=== PATIENT | male | born 1985 | race Caucasian/White ===

== ENCOUNTER 2022-03-20 09:12 | Emergency (ER) | payer OTHER, SELFPAY ==
[2022-03-20 09:40] VITALS: BP 139/79; PULSE 68; RESP 17; TEMP 36.6; O2SAT 98; BMI 26.2
[2022-03-20 10:04] LABS: Appearance Urine UA CLEAR; Bilirubin Urine UA NEGATIVE (NEGATIVE); Color Urine UA YELLOW; Glucose Urine UA NEGATIVE (Negative); Ketones Urine UA NEGATIVE (NEGATIVE); Leukocyte Esterase Urine UA NEGATIVE (NEGATIVE); Nitrite Urine UA NEGATIVE (Negative); Occult Blood Urine UA NEGATIVE (Negative); Protein Urine UA NEGATIVE (Negative); Urobilinogen Urine UA 0.2 E.U./dL (0.2); pH Urine UA 6.5 (4.5-8.0)
[2022-03-20 10:12] LABS: Bacteria Urine None Seen; Culture Indicated Urine Cult Not Indicated; RBC Urine None Seen (0-5/HPF); Urine Comments Microscopic Normal; WBC Urine None Seen (0-5/HPF)
--- NOTE | 2022-03-20 11:02 | ED.MALEGU ---
HPI - Male Genitourinary General Chief complaint: Urogenital-Male Stated complaint: left testicle pain Time Seen by Provider: 03/20/22 10:34 Source: patient Mode of arrival: Ambulatory Limitations: no limitations History of Present Illness HPI Narrative: This is a 36-year-old male with left testicular pain which patient has had intermittently over the years. In approximately 2010 he had testicular torsion and had bilateral orchiopexy to prevent recurrence. He states or time he has had pain particularly on that left side that will be intermittent. He has never seen Urology since then. He has been treated sometimes with antibiotics but does not seem to make any difference. He states pain is in the left testicle only, radiates upwards to the groin. He denies any significant back or flank pain. No fevers or chills. No nausea or vomiting. No dysuria, urgency or discharge. Patient has not had any issues with bowel movements, no diarrhea or constipation. Patient states there was 1 localized area it seemed little bit more painful but it sort of changes location. He states that he will have underlying ache with a significant being or lightening bolt of pain intermittently. Elevation does not seem to make any difference. He states this does not feel similar to his testicular torsion. He is on Paxil daily. Denies any other major medical issues. He is accompanied by his and small child today. Related Data Home Medications Medication Instructions Recorded Confirmed bupropion HCl 300 mg 24 hr tablet, 300 mg PO DAILY 03/20/22 03/20/22 extended release paroxetine HCl 20 mg tablet (Paxil) 20 mg PO BEDTIME 03/20/22 03/20/22 Previous Rx's Medication Instructions Recorded hydrocodone 5 mg-acetaminophen 325 2 tab PO Q6H PRN #14 tab 03/20/22 mg tablet Allergies Allergy/AdvReac Type Severity Reaction Status Date / Time No Known Drug Allergies Allergy Verified 03/20/22 09:44 Review of Systems Review of Systems ROS Unobtainable: All systems reviewed & are unremarkable except as noted in HPI and below Patient History Social History Smoking Status: Never smoker Smoking Status: Never smoker alcohol intake frequency: 0-2 drinks per day Alcohol type: beer Substance Use Type: does not use Exam Narrative Exam Narrative: GENERAL: Alert and oriented x three, male in mild distress. HEENT: Head normocephalic, atraumatic, EOMI, pupils reactive, face symmetric, moist mucous membranes NECK: Supple, full range of motion CARDIOVASCULAR: Regular rate and rhythm without murmurs, rubs or gallops. RESPIRATORY: Breath sounds equal bilaterally, no wheezes rales or rhonchi. ABDOMEN: Soft, nontender. Normoactive bowel sounds all 4 quadrants. No guarding or rebound, rigidity, no mass : No CVA tenderness. Male: normal external examination, no penile discharge or lesions, testicles non-tender to palpation but patient becomes quite painful after, normal cremasteric reflex intact, no inguinal hernias noted. EXTREMITIES: Normal range of motion, no clubbing or edema. Neurovascularly intact NEUROLOGICAL: Cranial nerves II through XII grossly intact. Moving all extremities SKIN: Warm, dry, no petechiae, no rashes or lesions. Initial Vital Signs Initial Vital Signs: Vital Signs Temperature 98 F 03/20/22 09:40 Pulse Rate 68 03/20/22 09:40 Respiratory Rate 17 03/20/22 09:40 Blood Pressure 139/79 03/20/22 09:40 Pulse Oximetry 98 03/20/22 09:40 Course Orders Ordered: Discontinued Medications Hydrocodone Bitart/Acetaminophen (Hydrocodone/Acet 5/325 Tablet) 2 tab PO NOW ONE Stop: 03/20/22 13:04 Last Admin: 03/20/22 13:11 Dose: 2 tab Documented by: JAIR Ketorolac Tromethamine (Ketorolac 30 Mg/Ml Vial) 30 mg IM NOW ONE Stop: 03/20/22 11:15 Last Admin: 03/20/22 11:33 Dose: 30 mg Documented by: PAM Reevaluation(s) Reevaluation #1: Patient was quite painful after evaluation. Was given Toradol which was somewhat helpful but after ultrasound patient still very uncomfortable. Was given additional dose of oral medication. He is not driving today. Vital Signs Vital signs: Vital Signs - 8 hr 03/20/22 09:40 Temperature 98 F Pulse Rate 68 Respiratory Rate 17 Blood Pressure 139/79 Pulse Oximetry 98 MDM - Male Genitourinary Lab Data Labs: Lab Results 03/20/22 03/20/22 Range/Units 09:12 09:55 Urine Color Yellow Urine Appearance Clear Urine pH 6.5 (4.5-8.0) Ur Specific [place] 1.020 (1.000-1.035) Urine Protein Negative (Negative) Urine Glucose (UA) Negative (Negative) g/dL Urine Ketones Negative (NEGATIVE) Urine Occult Blood Negative (Negative) Urine Nitrate Negative (Negative) Urine Bilirubin Negative (NEGATIVE) Urine Urobilinogen 0.2 (0.2) E.U./dL Ur Leukocyte Esterase Negative (NEGATIVE) Urine RBC None seen (0-5/HPF) Urine WBC None seen (0-5/HPF) Urine Bacteria None seen (None) Ur Culture Indicated? Cult not indicated Micro UA Comment Microscopic normal Ur Chlamydia DNA (PCR) Not detected N gonorrhoeae DNA (PCR) Not detected Imaging Data scrotal US: Radiologist's Impression: [address] [address] Ultrasound Report Signed Patient: El Wood MR#: [id number] : 1985 Acct:[id number] Age/Sex: 36 / M Date of Service: 03/20/22 Loc: ED Accession Number: [id number] ?? Procedure: US scrotum Ordering Provider: Maria Alejandra Blair D.O. PROCEDURE:? US SCROTUM ? INDICATIONS:? left testicular pain ? TECHNIQUE:? Real-time scanning was performed of the scrotum and testicles, with image documentation.? Color and pulse Doppler interrogation was performed of both testicles.? ? COMPARISON:? None. ? FINDINGS:? ? Right:? Testicle is normal in size at 4.5 x 2.3 x 3.1 cm, and homogenous in echotexture.? Epididymis is normal in overall size and morphology.? No hydrocele or varicoceles.? Overlying scrotal skin is normal in thickness.? ? Left:? Testicle is normal in size at 5 x 2.3 x 2.7 cm, and homogeneous in echotexture.? Epididymis is normal in overall size and demonstrates a 3 mm epididymal cyst.? No hydrocele or varicoceles.? Overlying scrotal skin is normal in thickness.? ? Doppler:? Color and pulse Doppler demonstrate normal and symmetric arterial flow in both testicles.? Prominent vessels can be seen involving the right scrotum. ? IMPRESSION:? No acute abnormality can be seen. ? The testicles demonstrate a normal, symmetric appearance, without masses or abnormal vascularity. ? Relatively prominent vascularity can be seen involving the right scrotum. ? ? Note: Concordant preliminary findings given by the secondary english teacher upon the completion of the examination to Dr. Blair at 11:50 a.m. on March 20, 2022.? ? ? Dictated by: Ramesh Collier M.D. on 03/20/2022 at 11:07 ? ? Approved by: Ramesh Collier M.D. on 03/20/2022 at 11:08 [facility] Narrative Medical decision making narrative: This is a 36-year-old male with acute on chronic left-sided scrotal/testicular pain patient's UA is negative, urine GC is negative. Testicular ultrasound shows some relatively prominent vascularity in the right scrotum which is asymptomatic, but no signs of torsion, epididymitis or other changes appreciated bilaterally. Patient did have urine culture sent. Discussed with patient he has been put on antibiotics before and was not helpful. He has not seen Urology. Plan for pain management and referral to Urology given. Return precautions were discussed. Patient feels comfortable with this plan. Discharge Plan Departure Patient Disposition: Home Clinical Impression: Pain in left testicle Activity Restrictions/Additional Instructions: Follow-up with urology. Call for an appointment today or tomorrow to set up an appointment in the next week. Urine studies are still pending patient result today and in the next 2-3 days if they are positive you should receive a phone call to start antibiotics. You may take pain medication as prescribed 1-2 tablets every 6 hours as needed. This medication can make you sleepy do not drive, perform hazardous activities or make any major decisions while taking it. This medication will make you constipated please take a stool softener once to twice daily until stools are soft and regular. You may also take ibuprofen up to 600 mg every 6 hours as needed. There is a slight increase in ulcers or GI bleeds with ibuprofen and Paxil but you can take with the Pepcid or similar type medication or with food to help decrease this risk. Prescription sent to [facility] in [place] Please return for fevers, increasing pain, changing abdominal, back or flank pain, persistent vomiting, redness, warmth or swelling of the testicle, changed location of pain or other new or concerning symptoms. Prescriptions: New hydrocodone-acetaminophen 5-325 mg tablet 2 tab PO Q6H PRN (Reason: pain) Qty: 14 0RF No Action paroxetine HCl [Paxil] 20 mg Tablet 20 mg PO BEDTIME 0RF bupropion HCl 300 mg tablet extended release 24 hr 300 mg PO DAILY 0RF Label Comments: TAKE 1 TABLET BY MOUTH EVERY 24 HOURS Referrals: Miscellaneous,Doctor, [Primary Care Provider] - Linus Green MD [Physician] -
--- NOTE | 2022-03-20 11:14 | DI.US.S_ITS ---
PROCEDURE: US SCROTUM INDICATIONS: left testicular pain TECHNIQUE: Real-time scanning was performed of the scrotum and testicles, with image documentation. Color and pulse Doppler interrogation was performed of both testicles. COMPARISON: None. FINDINGS: Right: Testicle is normal in size at 4.5 x 2.3 x 3.1 cm, and homogenous in echotexture. Epididymis is normal in overall size and morphology. No hydrocele or varicoceles. Overlying scrotal skin is normal in thickness. Left: Testicle is normal in size at 5 x 2.3 x 2.7 cm, and homogeneous in echotexture. Epididymis is normal in overall size and demonstrates a 3 mm epididymal cyst. No hydrocele or varicoceles. Overlying scrotal skin is normal in thickness. Doppler: Color and pulse Doppler demonstrate normal and symmetric arterial flow in both testicles. Prominent vessels can be seen involving the right scrotum. IMPRESSION: No acute abnormality can be seen. The testicles demonstrate a normal, symmetric appearance, without masses or abnormal vascularity. Relatively prominent vascularity can be seen involving the right scrotum. Note: Concordant preliminary findings given by the weld engineer upon the completion of the examination to Dr. Blair at 11:50 a.m. on March 20, 2022. Dictated by: Ramesh Collier M.D. on 03/20/2022 at 11:07 Approved by: Ramesh Collier M.D. on 03/20/2022 at 11:08
[2022-03-20] MEDS: KETOROLAC 30 MG/ML VIAL IM (11:33)
[2022-03-20] MEDS: HYDROCODONE/ACET 5/325 TABLET 2 TAB PO (13:11)
[2022-03-20 13:18] VITALS: BP 138/78; PULSE 61; RESP 18; O2SAT 97
[2022-03-20 14:23] LABS: Urine N gonorrhoeae NOT DETECTED
[2022-03-20 14:26] LABS: Urine Chlamydia NOT DETECTED
== END 2022-03-20 13:19 | disposition home or self-care (01) ==
PROVIDERS: Emergency Provider Emergency Medicine
DX: N50.812 Left testicular pain (principal)
CPT/HCPCS: 76870; 81001; 87086; 87491; 87591; 96372; 99283; J1885

== ENCOUNTER 2022-04-16 19:30 | Emergency (ER) | payer OTHER, SELFPAY ==
[2022-04-16 19:39] VITALS: BP 125/81; PULSE 67; RESP 16; TEMP 36.6; O2SAT 99
--- NOTE | 2022-04-16 19:45 | DI.RAD.S_ITS ---
PROCEDURE: XR CHEST 1V INDICATIONS: chest pain TECHNIQUE: One view of the chest was acquired. COMPARISON: None. FINDINGS: Surgical changes and devices: None. Lungs and pleura: Lungs are clear. No pleural effusions or pneumothorax. Mediastinum: Mediastinal contours appear normal. Heart size is normal. Bones and chest wall: No suspicious bony lesions. Overlying soft tissues appear unremarkable. IMPRESSION: 1. No acute cardiopulmonary disease. Dictated by: Sylvain Gupta M.D. on 04/16/2022 at 20:36 Approved by: Sylvain Gupta M.D. on 04/16/2022 at 20:36
[2022-04-16 20:30] LABS: Add Manual Diff / Slide Review NO; Basophils Absolute Auto 0 /uL (0-100); Basophils Percent Auto 0.7 % (0-2); Eosinophils Absolute Auto 0 /uL (0-450); Eosinophils Percent Auto 0.7 % (2-4); Hematocrit 44.4 % (41-53); Hemoglobin 15.5 g/dL (13.5-17.5); Lymphocytes Absolute Auto 1400 /uL (1100-4500); Lymphocytes Percent Auto 21.6 % (25-40); Mean Corpuscular HGB Conc 34.9 % (30-36); Mean Corpuscular Hemoglobin 31.2 PG (26-34); Mean Corpuscular Volume 89.2 fL (80-100); Monocytes Absolute Auto 400 /uL (0-900); Monocytes Percent Auto 6.6 % (3-14); Neutrophils Absolute Auto 4500 /uL (1500-7000); Neutrophils Percent Auto 70.4 % (50-75); Platelet Count 258 X10^3/uL (150-400); Red Blood Cell Count 4.98 X10^6/uL (4.5-5.9); Red Cell Distribution Width 13.4 % (11.6-14.8); White Blood Cell Count 6.4 X10^3/uL (4.5-11.0)
[2022-04-16 21:01] LABS: Alanine Aminotransferase 26 IU/L (<50); Albumin 4.8 g/dL (3.5-5.0); Albumin Globulin Ratio 1.8 (1.0-2.8); Alkaline Phosphatase 77 U/L (38-126); Aspartate Aminotransferase 29 IU/L (17-59); BUN Creatinine Ratio 16.7 (6-22); Bilirubin Total 0.5 mg/dL (0.2-1.3); Blood Urea Nitrogen 24 mg/dL (9-20); Carbon Dioxide 24 mmol/L (22-32); Chloride 104 mmol/L (98-107); Creatine Kinase 172 U/L (55-170); Estimated Glomerular Filt Rate > 60 mL/min (>60); Globulin 2.7 g/dL (1.7-4.1); Glucose 130 mg/dL (70-100); Lipase 137 U/L (23-300); Magnesium 2.2 mg/dL (1.6-2.3); Potassium 3.7 mmol/L (3.4-5.1); Sodium 139 mmol/L (137-145); Total Protein 7.5 g/dL (6.3-8.2)
[2022-04-16 21:12] LABS: Troponin I < 0.012 ng/mL (0.01-0.034)
[2022-04-16 21:16] LABS: CKMB % Relative Index 0.6 % (1.5-5.0); Creatine Kinase MB 1.08 ng/mL (<2.37); HEMOLYSIS 18 (0-50)
[2022-04-16] MEDS: ONDANSETRON 4 MG ODT SL (22:26)
--- NOTE | 2022-04-16 22:54 | ED_ITS ---
HPI - Chest Pain General Chief Complaint: Chest Pain Stated Complaint: Sternum Pain nausea pain when breathing Time Seen by Provider: 04/16/22 22:32 Source: patient Mode of arrival: Ambulatory History of Present Illness HPI narrative: Patient here with . Has sudden onset of reproducible xiphoid pain at 5:00 p.m. tonight. No known injury. No recent illness. No fever chills cough cold or congestion. Patient is in the . Exercises routinely. No new injuries or maneuvers. No recent exertional chest pain or dyspnea. No history of high blood pressure hypercholesteremia or heart attack or strokes. Related Data Home Medications Medication Instructions Recorded Confirmed bupropion HCl 300 mg 24 hr tablet, 300 mg PO DAILY 03/20/22 03/20/22 extended release paroxetine HCl 20 mg tablet (Paxil) 20 mg PO BEDTIME 03/20/22 03/20/22 Previous Rx's Medication Instructions Recorded hydrocodone 5 mg-acetaminophen 325 2 tab PO Q6H PRN pain #14 tabs 03/20/22 mg tablet ibuprofen 800 mg tablet 800 mg PO Q8H PRN pain #20 tabs 04/17/22 ondansetron 4 mg disintegrating 4 mg PO Q8H PRN nausea and 04/17/22 tablet vomiting #10 tabs Allergies Allergy/AdvReac Type Severity Reaction Status Date / Time No Known Drug Allergies Allergy Verified 03/20/22 09:44 Review of Systems Review of Systems Narrative: GENERAL: Denies chills, fatigue, malaise, fever, sweats. HEENT: Denies sinus pain, ear pain, sore throat RESPIRATORY: Denies dyspnea, cough CARDIOVASCULAR: Positive for chest pain, negative for palpitations GASTROINTESTINAL: Denies nausea, vomiting, abdominal pain : Denies dysuria, frequency, hematuria MUSCULOSKELETAL: denies muscle or bony pain SKIN: Denies rash, skin lesions NEUROLOGIC: Denies weakness, numbness ROS Unobtainable: All systems reviewed & are unremarkable except as noted in HPI and below Patient History Social History Smoking Status: Never smoker Smoking Status: Never smoker alcohol intake frequency: 0-2 drinks per day Alcohol type: beer Substance Use Type: does not use Exam Narrative Exam Narrative: GENERAL: in no distress, not toxic not dyspneic HEAD: Normocephalic. EYES: Pupils equal round No scleral icterus. ENT: Mucous membranes moist. NECK: Trachea midline. CARDIOVASCULAR: Regular rate and rhythm without murmurs, chest exposed. There is reproducible point tenderness at the xiphoid process. Hurts to cough and deep breath as well. However pain and tenderness is focal at the tip of the xiphoid bone. No overlying rash. No crepitus or flail. RESPIRATORY: Clear to auscultation. Breath sounds equal bilaterally. No wheezes, rales, or rhonchi. GASTROINTESTINAL: Abdomen soft, non-tender EXTREMITIES: No gross deformities. BACK: No flank tenderness. NEURO: AOx4. SKIN: Warm and dry PSYCH: Not anxious, is cooperative Initial Vital Signs Initial Vital Signs: Vital Signs Temperature 97.8 F 04/16/22 19:39 Pulse Rate 67 04/16/22 19:39 Respiratory Rate 16 04/16/22 19:39 Blood Pressure 125/81 04/16/22 19:39 Pulse Oximetry 99 04/16/22 19:39 Oxygen Delivery Method 04/16/22 19:39 Course Course Course Narrative: No new issues during course of stay Orders Ordered: Discontinued Medications Ketorolac Tromethamine (Ketorolac 30 Mg/Ml Vial) 15 mg IV NOW ONE Stop: 04/16/22 22:53 Last Admin: 04/16/22 23:14 Dose: 15 mg Documented By: ABDOULAYE Ondansetron HCl (Ondansetron 4 Mg Odt) 4 mg SL NOW ONE Stop: 04/16/22 22:21 Last Admin: 04/16/22 22:26 Dose: 4 mg Documented By: ANNETTE Reevaluation(s) Reevaluation #1: Patient states improvement with Toradol. Less painful on palpation. Not as severe as before. Return precautions reviewed with patient and . Reviewed results with them. They do desire discharge home Time: 01:15 Vital Signs Vital signs: Vital Signs - 8 hr 04/16/22 23:33 04/17/22 00:00 04/17/22 01:19 Pulse Rate 52 L 54 L 56 L Respiratory Rate 18 21 14 Blood Pressure 127/79 Pulse Oximetry 98 98 99 Oxygen Delivery Method Room Air MDM - Chest Pain Differential Diagnosis Differential diagnosis: Likely fracture of rib, pneumothorax, stable angina, unstable angina pectoris, atypical chest pain, st elevation myocardial infarction, costochondritis and chest pain Lab Data Result diagrams: 04/16/22 19:54 04/16/22 19:54 Labs: Lab Results 04/16/22 04/16/22 04/16/22 Range/Units 19:51 19:54 19:54 WBC 6.4 (4.5-11.0) X10^3/uL RBC 4.98 (4.5-5.9) X10^6/uL Hgb 15.5 (13.5-17.5) g/dL Hct 44.4 (41-53) % MCV 89.2 (80-100) fL MCH 31.2 (26-34) PG MCHC 34.9 (30-36) % RDW 13.4 (11.6-14.8) % Plt Count 258 (150-400) X10^3/uL Neut % (Auto) 70.4 (50-75) % Lymph % (Auto) 21.6 L (25-40) % [place] % (Auto) 6.6 (3-14) % Eos % (Auto) 0.7 L (2-4) % Baso % (Auto) 0.7 (0-2) % Neut # (Auto) 4500 (6995-8462) /uL Lymph # (Auto) 1400 (5097-3224) /uL [place] # (Auto) 400 (0-900) /uL Eos # (Auto) 0 (0-450) /uL Baso # (Auto) 0 (0-100) /uL D-Dimer < 200 (<230) ng/mL Sodium 139 (137-145) mmol/L Potassium 3.7 (3.4-5.1) mmol/L Chloride 104 (98-107) mmol/L Carbon Dioxide 24 (22-32) mmol/L BUN 24 H (9-20) mg/dL Creatinine 1.44 H (0.66-1.25) mg/dL Estimated GFR > 60 (>60) mL/min BUN/Creatinine Ratio 16.7 (6-22) Glucose 130 H (70-100) mg/dL Calcium 9.0 (8.4-10.2) mg/dL Magnesium 2.2 (1.6-2.3) mg/dL Total Bilirubin 0.5 (0.2-1.3) mg/dL AST 29 (17-59) IU/L ALT 26 (<50) IU/L Alkaline Phosphatase 77 (38-126) U/L Total Creatine Kinase 172 H (55-170) U/L CK-MB (CK-2) 1.08 (<2.37) ng/mL CK-MB (CK-2) Rel Index 0.6 L (1.5-5.0) % Troponin I < 0.012 (0.01-0.034) ng/mL Total Protein 7.5 (6.3-8.2) g/dL Albumin 4.8 (3.5-5.0) g/dL Globulin 2.7 (1.7-4.1) g/dL Albumin/Globulin Ratio 1.8 (1.0-2.8) Lipase 137 (23-300) U/L Imaging Data Chest x-ray: Radiologist's Impression: [address] [address] XRay Report Signed Patient: El Wood MR#: [id number] : 1985 Acct:[id number] Age/Sex: 36 / M Date of Service: 04/16/22 Loc: ED Accession Number: [id number] ?? Procedure: XR chest 1V Ordering Provider: Linus Maciel MD PROCEDURE:? XR CHEST 1V ? INDICATIONS:? chest pain ? TECHNIQUE:? One view of the chest was acquired.? ? COMPARISON:? None. ? FINDINGS:? ? Surgical changes and devices:? None.? ? Lungs and pleura:? Lungs are clear.? No pleural effusions or pneumothorax.? ? Mediastinum:? Mediastinal contours appear normal.? Heart size is normal.? ? Bones and chest wall:? No suspicious bony lesions.? Overlying soft tissues appear unremarkable.? ? IMPRESSION:? ? 1.? No acute cardiopulmonary disease. ? ? ? Dictated by: Sylvain Gupta M.D. on 04/16/2022 at 20:36 ? ? Approved by: Sylvain Gupta M.D. on 04/16/2022 at 20:36 ? ECG Data Interpretation: Normal sinus rhythm rate [address] elevation or depression. MDM Narrative Medical decision making narrative: Appropriate for discharge home. Patient had focal reproducible tenderness to the tip of the xiphoid. Exam and laboratory studies are reassuring. Likely xiphoid itis. Prescriptions provided for patient. Return precautions reviewed with patient and . They desire discharge home. Discharge Plan Departure Patient Disposition: Home Clinical Impression: Xiphoiditis Instructions: DI for Atypical Chest Pain, DI for Costochondritis Activity Restrictions/Additional Instructions: See family doctor in a week for recheck. Prescription for Motrin and Zofran have been provided for you. Return if worsening questions or concerns. Prescriptions: New ibuprofen 800 mg tablet 800 mg PO Q8H PRN (Reason: pain) Qty: 20 0RF ondansetron 4 mg tablet,disintegrating 4 mg PO Q8H PRN (Reason: nausea and vomiting) Qty: 10 0RF No Action paroxetine HCl [Paxil] 20 mg Tablet 20 mg PO BEDTIME bupropion HCl 300 mg tablet extended release 24 hr 300 mg PO DAILY Label Comments: TAKE 1 TABLET BY MOUTH EVERY 24 HOURS hydrocodone-acetaminophen 5-325 mg tablet 2 tab PO Q6H PRN (Reason: pain) Qty: 14 0RF Stand Alone Forms: Work Release Note Visit Report Forms: Patient Portal/API
[2022-04-16] MEDS: KETOROLAC 30 MG/ML VIAL 15 MG IV (23:14)
[2022-04-16 23:33] VITALS: PULSE 52; RESP 18; O2SAT 98
[2022-04-16 23:39] LABS: D Dimer < 200 ng/mL (<230)
--- NOTE | 2022-04-16 23:57 | PC.NURSE ---
Pt reports a 4/10 intermittent pain at his xiphoid process that began around 5pm while sitting and working at his desk. Pt reports pain as both dull and sharp, and had a sharp left chest pain that last only a few seconds. Pt reports pain with a deep breath and diarrhea. 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
[2022-04-17] VITALS: PULSE 54; RESP 21; O2SAT 98
[2022-04-17 01:19] VITALS: BP 127/79; PULSE 56; RESP 14; O2SAT 99
== END 2022-04-17 01:19 | disposition home or self-care (01) ==
PROVIDERS: Emergency Provider Emergency Medicine
DX: R07.89 Other chest pain (principal)
CPT/HCPCS: 71045; 80053; 82550; 82553; 83690; 83735; 84484; 85025; 85379; 93005; 96374; 99284; J1885

== ENCOUNTER → 2022-06-09 17:05 | Outpatient (CLI) | payer OTHER, SELFPAY ==
--- NOTE | 2022-06-09 | DI.MRI.S_ITS ---
PROCEDURE: MR PELIS WO/W CON INDICATIONS: TESTICULAR PAIN TECHNIQUE: Coronal HASTE, sagittal T2 FSE, axial T1 FSE, axial and coronal nonbreath-hold T2 FSE. Axial dynamic VIBE during administration of contrast. Post-contrast axial and coronal VIBE/2-D FLASH with fat saturation from the iliac crests to the symphysis. Optional diffusion weighted imaging and ADC may be performed. COMPARISON: 03/20/2022 ultrasound FINDINGS: Image quality: Excellent. Bowel and peritoneum: No pathologic free pelvic fluid. Inferior colon and small bowel loops are normal in caliber. Genitourinary system: Symmetric testicles with normal overall signal. Susceptibility adjacent to the right testis may be from prior orchiopexy surgery. Prominent veins noted in the pampiniform plexus, although no varicocele was noted on prior dynamic ultrasound. Corpus spongiosum and cavernosum of the penis are within normal limits by MRI. Nonspecific geographic hypointensity of the prostate peripheral zone could be sequelae of prostatitis. Bladder is within normal limits. No urethral dilation. Nodes and vessels: No pathologic pelvic or inguinal adenopathy by size criteria. Iliac vessels are normal in caliber. Soft tissues: No inguinal hernias. Bones: Marrow is normal in overall signal. IMPRESSION: Testes are within normal limits by MRI. No masses or asymmetric enlargement. Some foci of susceptibility adjacent to the right testis may be from prior reported orchiopexy. If symptoms persist or worsen, ultrasound remains first-line to evaluate acute testicular disorders. Dictated by: Jose Mulligan M.D. on 06/10/2022 at 8:57 Approved by: Jose Mulligan M.D. on 06/10/2022 at 9:06
== END ==
PROVIDERS: Referring Provider Nurse Practitioner Family; Visit Provider Nurse Practitioner Family
DX: N50.819 Testicular pain, unspecified (principal)
CPT/HCPCS: 72197; A9579

== ENCOUNTER 2022-06-19 08:25 | Emergency (ER) | payer OTHER, SELFPAY ==
[2022-06-19 08:45] VITALS: BP 131/76; PULSE 70; RESP 14; TEMP 37; O2SAT 99; BMI 29.0
--- NOTE | 2022-06-19 09:07 | ED.PSYCH ---
HPI - Psych General Chief Complaint: Psychiatric Symptoms Stated Complaint: HALLUCINATIONS, VISUAL AND AUDITORY Time Seen by Provider: 06/19/22 08:52 Source: patient Mode of arrival: Ambulatory History of Present Illness HPI Narrative: Patient is a 36-year-old male history of anxiety depression started on Wellbutrin and Paxil a few months ago. He says for the last 2 months he has had extremely vivid memories of things that did not happen. He asks his children about events they say those things did not happen. He remembers have a conversation with someone at work stating that at this person needed coverage for 30 days however that conversation apparently was not real. He is having a very hard time distinguishing between what is real and what is not real. He does not actually hear voices or see things but he has very specific memory of events that have happened. He had to ask his recently if they actually did have intercourse or not, because he just was not sure. He also has exacerbation of irrational fears. He says he has always had that but now he feels like it has gotten significantly worse. He says he walked into his bedroom and for some reason thought with a high school counselor something about was written on the wall. He is in outpatient therapy on the [facility]. He denies any thoughts of suicide or homicide. He denies any drug use or any alcohol use. He has no numbness tingling weakness. He has no balance issues. Related Data Home Medications Medication Instructions Recorded Confirmed bupropion HCl 300 mg 24 hr tablet, 300 mg PO DAILY 03/20/22 03/20/22 extended release paroxetine HCl 20 mg tablet (Paxil) 20 mg PO BEDTIME 03/20/22 03/20/22 Previous Rx's Medication Instructions Recorded hydrocodone 5 mg-acetaminophen 325 2 tab PO Q6H PRN pain #14 tabs 03/20/22 mg tablet ibuprofen 800 mg tablet 800 mg PO Q8H PRN pain #20 tabs 04/17/22 ondansetron 4 mg disintegrating 4 mg PO Q8H PRN nausea and 04/17/22 tablet vomiting #10 tabs Allergies Allergy/AdvReac Type Severity Reaction Status Date / Time No Known Drug Allergies Allergy Verified 06/19/22 08:52 Review of Systems Review of Systems Narrative: GENERAL: Denies chills,fever HEENT: Denies throat pain RESPIRATORY: Denies dyspnea, cough, wheezing CARDIOVASCULAR: Denies chest pain, palpitations GASTROINTESTINAL: Denies nausea, vomiting MUSCULOSKELETAL: Denies extremity pain, injury SKIN: No rash, no laceration, no pruritus NEUROLOGIC: Denies weakness, dizziness, headache, numbness 8 point review of systems is negative except for those stated above and HPI Psychiatric Psychiatric: Reports system reviewed and no additional complaints, except as documented, Reports paranoia, Reports visual hallucinations, Reports tactile hallucinations and Denies homicidal ideation Patient History Social History Smoking Status: Never smoker Smoking Status: Never smoker alcohol intake frequency: 0-2 drinks per day Alcohol type: beer Substance Use Type: does not use Exam Initial Vital Signs Initial Vital Signs: Vital Signs Temperature 98.6 F 06/19/22 08:45 Pulse Rate 70 06/19/22 08:45 Respiratory Rate 14 06/19/22 08:45 Blood Pressure 131/76 06/19/22 08:45 Pulse Oximetry 99 06/19/22 08:45 Oxygen Delivery Method 06/19/22 08:45 GENERAL: Well-appearing 36-year-old male and in no acute distress. HEENT: Head atraumatic,EOMI, pupils reactive, face symmetric, moist mucous membranes CARDIOVASCULAR: Regular rate and rhythm without murmurs, rubs or gallops. RESPIRATORY: Breath sounds equal bilaterally, no wheezes rales or rhonchi. EXTREMITIES: Normal range of motion, no clubbing or edema. Neurovascularly intact NEUROLOGICAL: Alert and oriented x4. SKIN: Warm, dry, no laceration, no petechiae, no rashes or lesions. Psych Appearance: grossly normal Mental Status: mental status grossly normal Speech and Movement: speech clear Mood: anxious mood and paranoid Affect: normal affect Attitude: cooperative Thought Process: normal Thought Content: hallucinations visual and tactile Judgment: fair Course Orders Ordered: ED Orders 06/19/22 08:51 Consult to [facility] - Spray Painting Machine Operator Stat 06/19/22 09:09 Consult to [facility] - Spray Painting Machine Operator Urgent CT head/brain wo con Stat 06/19/22 09:31 Complete Blood Count AUTO DIFF Stat Comprehensive Metabolic Panel Stat Ethanol (ETOH) Stat TSH [Thyroid Stimulating Hormone] Stat 06/19/22 09:59 Urine Drug Screen, Rapid Stat Vital Signs Vital signs: Vital Signs - 8 hr 06/19/22 13:53 Pulse Rate 67 Respiratory Rate 18 Pulse Oximetry 98 Oxygen Delivery Method Room Air MDM - Psych Lab Data Result diagrams: 06/19/22 09:31 06/19/22 09:31 Labs: Lab Results 06/19/22 06/19/22 06/19/22 Range/Units 09:31 09:31 09:31 WBC 4.7 (4.5-11.0) X10^3/uL RBC 5.09 (4.5-5.9) X10^6/uL Hgb 16.0 (13.5-17.5) g/dL Hct 45.3 (41-53) % MCV 88.9 (80-100) fL MCH 31.4 (26-34) PG MCHC 35.3 (30-36) % RDW 13.4 (11.6-14.8) % Plt Count 248 (150-400) X10^3/uL Neut % (Auto) 62.7 (50-75) % Lymph % (Auto) 26.2 (25-40) % [place] % (Auto) 9.2 (3-14) % Eos % (Auto) 1.1 L (2-4) % Baso % (Auto) 0.8 (0-2) % Neut # (Auto) 2900 (9490-8597) /uL Lymph # (Auto) 1200 (6417-6808) /uL [place] # (Auto) 400 (0-900) /uL Eos # (Auto) 100 (0-450) /uL Baso # (Auto) 0 (0-100) /uL Sodium 140 (137-145) mmol/L Potassium 3.9 (3.4-5.1) mmol/L Chloride 103 (98-107) mmol/L Carbon Dioxide 30 (22-32) mmol/L BUN 18 (9-20) mg/dL Creatinine 1.32 H (0.66-1.25) mg/dL Estimated GFR > 60 (>60) mL/min BUN/Creatinine Ratio 13.6 (6-22) Glucose 104 H (70-100) mg/dL Calcium 9.2 (8.4-10.2) mg/dL Total Bilirubin 0.7 (0.2-1.3) mg/dL AST 30 (17-59) IU/L ALT 32 (<50) IU/L Alkaline Phosphatase 64 (38-126) U/L Total Protein 7.7 (6.3-8.2) g/dL Albumin 4.6 (3.5-5.0) g/dL Globulin 3.1 (1.7-4.1) g/dL Albumin/Globulin Ratio 1.5 (1.0-2.8) TSH 2.07 (0.47-4.68) uIU/mL U Opiates 300ng/mL cut (Negative) Ur Oxycodone Screen (Negative) Urine Methadone Screen (Negative) Ur Barbiturates Screen (Negative) U Tricyclic Antidepress (Negative) Ur Phencyclidine Scrn (Negative) Ur Amphetamines Screen (Negative) U Methamphetamines Scrn (Negative) Ur MDMA Scrn (Ecstasy) (Negative) U Benzodiazepines Scrn (Negative) Urine Cocaine Screen (Negative) U Marijuana (THC) Screen Ethyl Alcohol < 10 ( - 10) mg/dL 06/19/22 Range/Units 09:59 WBC (4.5-11.0) X10^3/uL RBC (4.5-5.9) X10^6/uL Hgb (13.5-17.5) g/dL Hct (41-53) % MCV (80-100) fL MCH (26-34) PG MCHC (30-36) % RDW (11.6-14.8) % Plt Count (150-400) X10^3/uL Neut % (Auto) (50-75) % Lymph % (Auto) (25-40) % [place] % (Auto) (3-14) % Eos % (Auto) (2-4) % Baso % (Auto) (0-2) % Neut # (Auto) (2377-8089) /uL Lymph # (Auto) (0653-4134) /uL [place] # (Auto) (0-900) /uL Eos # (Auto) (0-450) /uL Baso # (Auto) (0-100) /uL Sodium (137-145) mmol/L Potassium (3.4-5.1) mmol/L Chloride (98-107) mmol/L Carbon Dioxide (22-32) mmol/L BUN (9-20) mg/dL Creatinine (0.66-1.25) mg/dL Estimated GFR (>60) mL/min BUN/Creatinine Ratio (6-22) Glucose (70-100) mg/dL Calcium (8.4-10.2) mg/dL Total Bilirubin (0.2-1.3) mg/dL AST (17-59) IU/L ALT (<50) IU/L Alkaline Phosphatase (38-126) U/L Total Protein (6.3-8.2) g/dL Albumin (3.5-5.0) g/dL Globulin (1.7-4.1) g/dL Albumin/Globulin Ratio (1.0-2.8) TSH (0.47-4.68) uIU/mL U Opiates 300ng/mL cut Negative (Negative) Ur Oxycodone Screen Negative (Negative) Urine Methadone Screen Negative (Negative) Ur Barbiturates Screen Negative (Negative) U Tricyclic Antidepress Negative (Negative) Ur Phencyclidine Scrn Negative (Negative) Ur Amphetamines Screen Negative (Negative) U Methamphetamines Scrn Negative (Negative) Ur MDMA Scrn (Ecstasy) Negative (Negative) U Benzodiazepines Scrn Negative (Negative) Urine Cocaine Screen Negative (Negative) U Marijuana (THC) Screen TNP Ethyl Alcohol ( - 10) mg/dL Urine Dip Bedside Urine Glucose Negative Bedside Urine Bilirubin - Negative Bedside Urine Ketone - Negative Urine Specific [place] 1.025 Bedside Urine Occult Blood - Negative Bedside Urine pH 6 Bedside Urine Protein - Negative Bedside Urine Urobilinogen - Negative Bedside Urine Nitrite - Negative Bedside Urine Leukocytes - Negative Esterase Imaging Data CT scan - head: Radiologist's Impression: [address] [address] [address] Scan Report Signed Patient: El Wood MR#: [id number] : 1985 Acct:[id number] Age/Sex: 36 / M Date of Service: 06/19/22 Loc: ED Accession Number: [id number] ?? Procedure: CT head/brain wo con Ordering Provider: Judit Bach D.O. PROCEDURE:? CT HEAD/BRAIN WO CON ? INDICATIONS:? hallucinations ? TECHNIQUE:? Noncontrast 4.5 mm thick angled axial sections acquired from the foramen magnum to the vertex, with coronal and sagittal reformats.? For radiation dose reduction, the following was used:? automated exposure control, adjustment of mA and/or kV according to patient size.? ? COMPARISON:? None. ? FINDINGS:? Image quality:? Excellent.? ? CSF spaces:? Basal cisterns are patent.? No extra-axial fluid collections.? Ventricles are normal in size and shape.? ? Brain:? No midline shift.? No intracranial masses or hemorrhage.? Lopez-white matter interface is normal.? ? Skull and face:? Calvarium and visualized facial bones are intact, without suspicious lesions.? ? Sinuses:? Visualized sinuses and mastoids are clear.? ? IMPRESSION:? Normal noncontrast head CT.? ? ? Dictated by: Ramesh Collier M.D. on 06/19/2022 at 8:26 ? ? MDM Narrative Medical decision making narrative: The patient's is at bedside. She states symptoms started about 1 week after starting Paxil. Blood work head CT are overall reassuring. Patient was evaluated by social Work. At this time not deemed gravely disabled he does not have suicidal or homicidal ideations. Does have outpatient therapy. There is an appointment in 4 days to change of his medication. He is hesitant to go voluntarily. At this time he feels like he is able to work feels that he is safely able to care for children. Discharge Plan Departure Patient Disposition: Home Clinical Impression: Hallucinations, Drug-induced psychotic disorder Instructions: DI for Adverse Drug Reaction -- Other Activity Restrictions/Additional Instructions: *You have been diagnosed with hallucinations *What to do: You reacting to Paxil. Please discuss this with your provider. *Continue to take medications as directed *Follow up with your primary care provider in 2-3 days or call [phone] *Return to ER if you should have worsening hallucinations of harming self or others or any new, worsening or concerning symptoms Prescriptions: No Action ibuprofen 800 mg tablet 800 mg PO Q8H PRN (Reason: pain) Qty: 20 0RF ondansetron 4 mg tablet,disintegrating 4 mg PO Q8H PRN (Reason: nausea and vomiting) Qty: 10 0RF paroxetine HCl [Paxil] 20 mg Tablet 20 mg PO BEDTIME bupropion HCl 300 mg tablet extended release 24 hr 300 mg PO DAILY Label Comments: TAKE 1 TABLET BY MOUTH EVERY 24 HOURS hydrocodone-acetaminophen 5-325 mg tablet 2 tab PO Q6H PRN (Reason: pain) Qty: 14 0RF Referrals: ProviderMarko [Primary Care Provider] - Visit Report Forms: Patient Portal/API
--- NOTE | 2022-06-19 09:09 | DI.CT.S_ITS ---
PROCEDURE: CT HEAD/BRAIN WO CON INDICATIONS: hallucinations TECHNIQUE: Noncontrast 4.5 mm thick angled axial sections acquired from the foramen magnum to the vertex, with coronal and sagittal reformats. For radiation dose reduction, the following was used: automated exposure control, adjustment of mA and/or kV according to patient size. COMPARISON: None. FINDINGS: Image quality: Excellent. CSF spaces: Basal cisterns are patent. No extra-axial fluid collections. Ventricles are normal in size and shape. Brain: No midline shift. No intracranial masses or hemorrhage. Lopez-white matter interface is normal. Skull and face: Calvarium and visualized facial bones are intact, without suspicious lesions. Sinuses: Visualized sinuses and mastoids are clear. IMPRESSION: Normal noncontrast head CT. Dictated by: Ramesh Collier M.D. on 06/19/2022 at 8:26 Approved by: Ramesh Collier M.D. on 06/19/2022 at 8:26
[2022-06-19 09:46] LABS: Add Manual Diff / Slide Review NO; Basophils Absolute Auto 0 /uL (0-100); Basophils Percent Auto 0.8 % (0-2); Eosinophils Absolute Auto 100 /uL (0-450); Eosinophils Percent Auto 1.1 % (2-4); Hematocrit 45.3 % (41-53); Lymphocytes Absolute Auto 1200 /uL (1100-4500); Lymphocytes Percent Auto 26.2 % (25-40); Mean Corpuscular HGB Conc 35.3 % (30-36); Mean Corpuscular Hemoglobin 31.4 PG (26-34); Mean Corpuscular Volume 88.9 fL (80-100); Monocytes Absolute Auto 400 /uL (0-900); Monocytes Percent Auto 9.2 % (3-14); Neutrophils Absolute Auto 2900 /uL (1500-7000); Neutrophils Percent Auto 62.7 % (50-75); Platelet Count 248 X10^3/uL (150-400); Red Blood Cell Count 5.09 X10^6/uL (4.5-5.9); Red Cell Distribution Width 13.4 % (11.6-14.8); White Blood Cell Count 4.7 X10^3/uL (4.5-11.0)
[2022-06-19 10:09] LABS: Alanine Aminotransferase 32 IU/L (<50); Albumin 4.6 g/dL (3.5-5.0); Albumin Globulin Ratio 1.5 (1.0-2.8); Alkaline Phosphatase 64 U/L (38-126); Aspartate Aminotransferase 30 IU/L (17-59); BUN Creatinine Ratio 13.6 (6-22); Bilirubin Total 0.7 mg/dL (0.2-1.3); Blood Urea Nitrogen 18 mg/dL (9-20); Calcium 9.2 mg/dL (8.4-10.2); Carbon Dioxide 30 mmol/L (22-32); Chloride 103 mmol/L (98-107); Estimated Glomerular Filt Rate > 60 mL/min (>60); Ethanol (ETOH) < 10 mg/dL; Globulin 3.1 g/dL (1.7-4.1); Glucose 104 mg/dL (70-100); HEMOLYSIS < 15 (0-50); Potassium 3.9 mmol/L (3.4-5.1); Sodium 140 mmol/L (137-145); Total Protein 7.7 g/dL (6.3-8.2)
[2022-06-19 10:39] LABS: Thyroid Stimulating Hormone 2.07 uIU/mL (0.47-4.68)
[2022-06-19 11:09] LABS: Ur Creatinine Normal (Normal); Ur Specific Gravity Normal (Normal); Urine pH Normal (Normal)
[2022-06-19 11:10] LABS: UR Morphine/Opiate cutoff 300 Negative (Negative); Urine Amphetamines Negative (Negative); Urine Barbiturates Negative (Negative); Urine Benzodiazepines Negative (Negative); Urine Cocaine Negative (Negative); Urine MDMA Negative (Negative); Urine Methadone Negative (Negative); Urine Methamphetamines Negative (Negative); Urine Oxycodone Negative (Negative); Urine Phencyclidine Negative (Negative); Urine Tricyclic Antidepressant Negative (Negative)
--- NOTE | 2022-06-19 12:25 | PC.NURSE ---
CARTON FILLER at patient bedside for consultation.
[2022-06-19 13:53] VITALS: PULSE 67; RESP 18; O2SAT 98
--- NOTE | 2022-06-19 13:59 | CM.SWNOTE ---
CHAIN TENDER Assessment CHAIN TENDER - Email Campaign Specialist Assessment CHAIN TENDER/Email Campaign Specialist Assessment Time Spent with Patient Start date 06/19/22 Visit Start Time 12:15 End date 06/19/22 Visit End Time 13:00 Total time Care Management spent on 45 Minutes patient visit-in minutes Mental Health Screening Include Onset, Duration, Intensity Presenting Problem Patient presents to ED via POV with due to concern for visual and auditory hallucinations that feels real . Patient has verbalized concern for his safety and concern for children at times. Patient denies SI and HI and states he feels safe to d/c to home. Patient endorses he has experienced having conversations that feel real but did not occur. Patient states I just want to be me again. Precipitating Event(s) Patient endorses he has been experiencing hallucinations since he was prescribed Paxil and Welbutrin a few months ago . Patient endorses difficulty sleeping as well. Patient Strengths Patient is seeking help, has supports, and has therapist and Psychiatric Nurse on care team. Current Behavioral Health Provider(s) Patient sees therapist Ms. Include Facility, Provider, Ph. # [place] at [facility] on weekly basis and patient has reservations manager Tayler Martin NP who prescribes patient's medications. Psych. Hx Mental Health and Chemical Patient has hx of Anxiety and Dependency Depression. Patient denies PTSD dx. Patient denies ETOH and substance use. Family Hx of Behavioral Abuse None reported Psychiatric Hospitalizations (date(s)/ No hx location) Psychosocial information & Support Patient is 36 y/o male who Systems resides in [place] with and kids. Patient endorses as support. 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 Thought Content - Specify/Describe Patient endorses experiencing Obsessions, Delusions, Hallucinations conversations that in actuality did not happen. Patient states that he thought he had a conversation with someone he worked with about covering a 30 day leave from work and when he asked co- worker about it, it was not a conversation that was had. Patient endorses experiencing brushing his teeth rapidly because he thought he needed to bail his 9 y/o son out of snf from using a purple pen in school. Patient endorses having intimacy with that didn't happen. Patient endorses at times I feel like I'm dying... my is imminent and is after me. Patient states he saw something written on the wall in highlighter that said I want you . endorses that nothing was there. endorses that patient has irrational fear of being sick. Patient endorses he often feels like he is having a hard time deciphering what is real and what is a dream. Thought Processes (Iefykme-Qxmxesgv-Xhdf logical and coherent Uaftncka-Krhvnhmm-Urpnizstfz- Claxoectaqoruv-Uskfffs-Abadnxwrgyqd- Thought Blocking) Speech (Yrnvfu-Xqhw-Gzslxrn-Rapid-Soft- normal Loud-Pressured) Motor (Ejyjqw-Cgbbtqswl-Cdyk-Other) normal Insight (Zuac-Fcyi-Mkja/Limited) fair Judgement (Essn-Mtpk-Elvc/Limited) fair Impulse Control (Adequate-Impaired) adequate Memory (Gieawylor-Medniz-Gkcask, intact, not formally assessed Impaired-Intact) Concentration (Intact-Impaired) intact Attention (Intact-Impaired) intact Behavior (Appropriate-Inappropriate) appropriate Additional Comment Patient presents as calm, communicative and cooperative. Risk Assessment Suicidal Ideation (Plan) No Homicidal Ideation (Plan) No Comment Patient denies SI and HI. Intervention Intervention CHAIN TENDER enters room to meet with patient. Present in room is patient's , patient provides consent for to be present. Patient endorses that in the last few months I can't tell the difference between things that are real or not real. Patient states that he may be hanging onto dreams as if they are factual events. Patient and endorse that this has been occurring for patient since he started taking Paxil rx. Patient states he has informed his prescribing psychiatric nurse and therapist about this. Patient states that his prescriber thought this was due to patient's lack of sleep as patient has not been able to sleep as well. Patient endorses his therapist believes that it may be due to patient's PTSD. Patient denies PTSD. Patient endorses hx of Anxiety and Depression and that is why he is prescribed those medications. Patient and endorse that they do not fight as much. Patient endorses it is due to not caring Patient states I'm not super happy but not running from problems. CHAIN TENDER discusses voluntary inpatient hospitalization at [facility] and patient endorses he does not want to go to inpatient. Patient endorses his fears of doing so and uncertainty that it will help. Patient endorses his willingness to seek more from outpatient providers. Patient endorses he has weekly appts scheduled with his therapist on Wednesdays and she plans to start EMDR with patient. It is the opinion of this CHAIN TENDER that patient would benefit from voluntary inpatient hospitalization for stabilization and medication management but patient is safe enough for d/c to home upon medical clearance. CHAIN TENDER calls patient's psychiatric nurse's office at [facility] and CHAIN TENDER schedules f/u appt for patient for Thursday06/23/22 for medication management. It is the opinion of this CHAIN TENDER that patient is not gravely disabled at this point in time due to patient's seeking help on his own accord, and endorsing his ability to seek help with current outpatient providers. CHAIN TENDER reviews the above ED provider Dr. Bach who indicates agreement and understanding. CHAIN TENDER provides patient with crisis contact numbers to reach out to when in a crisis. Patient endorses that he plans to reach out to his Lutenint regarding his current situation as well. Plan RA Plan Patient to d/c to home upon medical clearance. Patient to f/u with bankman appt on [facility] for Saturday 06/23, patient to f/u with upcoming therapy appt on 06/25. LAURYN Gutierrez
== END 2022-06-19 13:55 | disposition home or self-care (01) ==
PROVIDERS: Emergency Provider Emergency Medicine
DX: F19.959 Other psychoactive substance use, unspecified with psychoactive substance-induced psychotic disorder, unspecified (principal); R44.3 Hallucinations, unspecified
CPT/HCPCS: 36415; 70450; 80053; 80305; 80320; 81003; 84443; 85025; 99283; 99284

== ENCOUNTER 2022-10-04 18:40 | Emergency (ER) | payer OTHER, SELFPAY ==
[2022-10-04 18:50] VITALS: BP 140/83; PULSE 88; RESP 18; TEMP 36.9; O2SAT 98; BMI 30.5
[2022-10-04] MEDS: ONDANSETRON 4 MG/2 ML INJ IV (19:05)
[2022-10-04 19:15] LABS: Add Manual Diff / Slide Review NO; Basophils Absolute Auto 100 /uL (0-100); Eosinophils Absolute Auto 100 /uL (0-450); Eosinophils Percent Auto 0.9 % (2-4); Hematocrit 47.8 % (41-53); Hemoglobin 16.7 g/dL (13.5-17.5); Lymphocytes Absolute Auto 1900 /uL (1100-4500); Lymphocytes Percent Auto 25.7 % (25-40); Mean Corpuscular Hemoglobin 31.4 PG (26-34); Mean Corpuscular Volume 89.8 fL (80-100); Monocytes Absolute Auto 600 /uL (0-900); Monocytes Percent Auto 8.2 % (3-14); Neutrophils Absolute Auto 4700 /uL (1500-7000); Neutrophils Percent Auto 64.2 % (50-75); Platelet Count 296 X10^3/uL (150-400); Red Blood Cell Count 5.33 X10^6/uL (4.5-5.9); Red Cell Distribution Width 13.9 % (11.6-14.8); White Blood Cell Count 7.4 X10^3/uL (4.5-11.0)
[2022-10-04 19:37] LABS: Alanine Aminotransferase 118 IU/L (<50); Albumin 5.1 g/dL (3.5-5.0); Albumin Globulin Ratio 1.6 (1.0-2.8); Alkaline Phosphatase 68 U/L (38-126); Aspartate Aminotransferase 52 IU/L (17-59); BUN Creatinine Ratio 16.7 (6-22); Bilirubin Total 0.6 mg/dL (0.2-1.3); Blood Urea Nitrogen 21 mg/dL (9-20); Calcium 9.3 mg/dL (8.4-10.2); Carbon Dioxide 26 mmol/L (22-32); Chloride 100 mmol/L (98-107); Estimated Glomerular Filt Rate > 60 mL/min (>60); Globulin 3.2 g/dL (1.7-4.1); Glucose 96 mg/dL (70-100); HEMOLYSIS 32 (0-50); Lipase 69 U/L (23-300); Potassium 4.1 mmol/L (3.4-5.1); Sodium 139 mmol/L (137-145); Total Protein 8.3 g/dL (6.3-8.2)
--- NOTE | 2022-10-04 19:42 | ED.ABDPAIN ---
HPI - Abdominal Pain General Chief Complaint: Abdominal Pain Stated Complaint: burning pain in upper left quadrant and lower back Time Seen by Provider: 10/04/22 18:44 Source: patient Mode of arrival: Ambulatory History of Present Illness HPI narrative: 37-year-old male nonsmoker with history of BPH presents with his significant other and a chief complaint of severe left upper quadrant and left flank pain that has been present for least the past few days. He states it started in his left upper back any thought perhaps it was a pulled muscle but over the course of the past few days it is wrapped around a bit to his left upper quadrant. He complains of a persistent aching if not burning type pain in his left upper quadrant. He states that he has episodes where it intensifies significantly, sometimes it is made worse by his position, sometimes it seems to come on with a mind of its own. He has had nausea and some decreased appetite and 1 episode of vomiting. He states the vomiting did not contain any blood or bilious material and did not affect his discomfort whatsoever. He is had no fever or chills and denies any trauma. She denies runny nose, sore throat or cough. He has no chest pain or shortness of breath. He has no diarrhea or constipation and denies urinary complaint. Related Data Home Medications Medication Instructions Recorded Confirmed bupropion HCl 300 mg 24 hr tablet, 300 mg PO DAILY 03/20/22 09/30/22 extended release paroxetine HCl 20 mg tablet (Paxil) 20 mg PO BEDTIME 03/20/22 09/30/22 clonidine HCl 0.1 mg tablet 0.1 mg PO .as needed 09/30/22 09/30/22 Previous Rx's Medication Instructions Recorded tamsulosin 0.4 mg capsule 0.4 mg PO BEDTIME #90 caps 08/05/22 cyclobenzaprine 10 mg tablet 10 mg PO TID PRN muscle spasm #14 10/04/22 tabs gabapentin 300 mg capsule 300 mg PO BEDTIME #14 caps 10/04/22 ketorolac 10 mg tablet 10 mg PO Q6H PRN pain #14 tabs 10/04/22 valacyclovir 1 gram tablet 1,000 mg PO TID 10 days #30 tabs 10/04/22 Allergies Allergy/AdvReac Type Severity Reaction Status Date / Time No Known Drug Allergies Allergy Verified 09/30/22 08:58 Review of Systems Review of Systems Narrative: GENERAL: See HPI HEENT: Denies sinus pain, ear pain, sore throat, difficulty swallowing, dizziness. RESPIRATORY: Denies dyspnea, cough, wheezing, hemoptysis, sputum. CARDIOVASCULAR: Denies chest pain, palpitations, orthopnea, edema, GASTROINTESTINAL: See HPI : See HPI MUSCULOSKELETAL: denies weakness, joint pain, or bony pain SKIN: Denies rash, skin lesions, or other NEUROLOGIC: Denies weakness, headache, numbness, change in speech, confusion, seizures, incoordination. PSYCHIATRIC: No concerning psychosocial issues. 12 point review of systems is negative except for those stated above Patient History Medical History BPH loc w urin obs/LUTS Depression Epididymal pain Testicular pain Surgical History S/P orchiopexy Family History Father Diabetes mellitus Hyperlipidemia Hypertension Mother Cancer Social History marital status: number of children: 3 Smoking Status: Never smoker Type(s) of exercise: aerobic frequency: daily Smoking Status: Never smoker alcohol intake frequency: 0-2 drinks per day Alcohol type: beer Substance Use Type: does not use Exam Narrative Exam Narrative: GENERAL: [37] year old patient appears stated age. Well-developed patient, in obvious discomfort, upright and pacing in the room, rubbing his LUQ and side HEAD: Atraumatic. Normocephalic. EYES: Pupils equal round and reactive. Extraocular motions intact. No scleral icterus. No injection or drainage. ENT: Nose without bleeding, purulent drainage. Throat without erythema, tonsillar hypertrophy or exudate. Airway patent. NECK: Trachea midline. Non tender CARDIOVASCULAR: Regular rate and rhythm without murmurs, gallops, or rubs. RESPIRATORY: Clear to auscultation. Breath sounds equal bilaterally. No wheezes, rales, or rhonchi. GASTROINTESTINAL: Abdomen soft, non-tender, nondistended. Pain is not reproducible, no rash on the skin, clear vesicles or other suggestion of shingles EXTREMITIES: No edema or joint tenderness. BACK: Nontender without deformity or crepitance. No flank tenderness. NEURO: AOx3. SKIN: No rash or erythema of visible areas Initial Vital Signs Initial Vital Signs: Vital Signs Temperature 98.5 F 10/04/22 18:50 Pulse Rate 88 10/04/22 18:50 Respiratory Rate 18 10/04/22 18:50 Blood Pressure 140/83 10/04/22 18:50 Pulse Oximetry 98 10/04/22 18:50 Oxygen Delivery Method 10/04/22 18:50 Course Orders Ordered: ED Orders 10/04/22 18:54 EKG-12 Lead Stat 10/04/22 19:05 Complete Blood Count AUTO DIFF Stat Comprehensive Metabolic Panel Stat Lipase Stat 10/04/22 19:52 CT abdomen pelvis w con Stat Discontinued Medications Cyclobenzaprine HCl (Cyclobenzaprine 10 Mg Prepack) 1 bottle MISC SEEINSTR ONE Stop: 10/04/22 21:34 Last Admin: 10/04/22 22:21 Dose: 1 bottle Documented By: ANNETTE Dexamethasone (Dexamethasone 10 Mg/Ml Vial) 10 mg IV NOW ONE Stop: 10/04/22 21:34 Last Admin: 10/04/22 22:21 Dose: 10 mg Documented By: ANNETTE Gabapentin (Gabapentin 300 Mg Capsule) 300 mg PO NOW ONE Stop: 10/04/22 21:34 Last Admin: 10/04/22 22:22 Dose: 300 mg Documented By: ANNETTE Sodium Chloride (Normal Saline 0.9%) 1,000 mls @ 1,000 mls/hr IV BOLUS ONE Stop: 10/04/22 20:50 Last Infusion: 10/04/22 21:00 Dose: 0 mls/hr Documented By: Admin: 10/04/22 20:00 Dose: 1,000 mls/hr Documented By: ANNETTE Ketorolac Tromethamine (Ketorolac 30 Mg/Ml Vial) 15 mg IV NOW ONE Stop: 10/04/22 21:34 Last Admin: 10/04/22 22:22 Dose: 15 mg Documented By: ANNETTE Ondansetron HCl (Ondansetron 4 Mg/2 Ml Inj) 4 mg IV NOW PRN PRN Reason: Nausea And Vomiting Last Admin: 10/04/22 19:05 Dose: 4 mg Documented By: OTMASZ Pantoprazole Sodium (Pantoprazole 40 Mg Vial) 40 mg IV NOW ONE Stop: 10/04/22 19:52 Last Admin: 10/04/22 20:00 Dose: 40 mg Documented By: SB Reevaluation(s) Reevaluation #1: Patient continues to state that it feels hot and like it is burning and wrapping around from his back to his left upper abdomen, still I am unable to reproduce the pain by deep palpation. Given the return of such reassuring labs and imaging my suspicion is raised about the possibility of an early presentation of shingles. I have ordered gabapentin, steroids, Toradol and Flexeril. Vital Signs Vital signs: Vital Signs - 8 hr 10/04/22 23:24 Pulse Rate 50 L Respiratory Rate 16 Blood Pressure 126/81 Pulse Oximetry 96 Oxygen Delivery Method Room Air MDM - Abdominal Pain Lab Data Result diagrams: 10/04/22 19:05 10/04/22 19:05 Labs: Lab Results 10/04/22 10/04/22 Range/Units 19:05 19:05 WBC 7.4 (4.5-11.0) X10^3/uL RBC 5.33 (4.5-5.9) X10^6/uL Hgb 16.7 (13.5-17.5) g/dL Hct 47.8 (41-53) % MCV 89.8 (80-100) fL MCH 31.4 (26-34) PG MCHC 35.0 (30-36) % RDW 13.9 (11.6-14.8) % Plt Count 296 (150-400) X10^3/uL Neut % (Auto) 64.2 (50-75) % Lymph % (Auto) 25.7 (25-40) % [place] % (Auto) 8.2 (3-14) % Eos % (Auto) 0.9 L (2-4) % Baso % (Auto) 1.0 (0-2) % Neut # (Auto) 4700 (7713-3057) /uL Lymph # (Auto) 1900 (0039-2449) /uL [place] # (Auto) 600 (0-900) /uL Eos # (Auto) 100 (0-450) /uL Baso # (Auto) 100 (0-100) /uL Sodium 139 (137-145) mmol/L Potassium 4.1 (3.4-5.1) mmol/L Chloride 100 (98-107) mmol/L Carbon Dioxide 26 (22-32) mmol/L BUN 21 H (9-20) mg/dL Creatinine 1.26 H (0.66-1.25) mg/dL Estimated GFR > 60 (>60) mL/min BUN/Creatinine Ratio 16.7 (6-22) Glucose 96 (70-100) mg/dL Calcium 9.3 (8.4-10.2) mg/dL Total Bilirubin 0.6 (0.2-1.3) mg/dL AST 52 (17-59) IU/L ALT 118 H (<50) IU/L Alkaline Phosphatase 68 (38-126) U/L Total Protein 8.3 H (6.3-8.2) g/dL Albumin 5.1 H (3.5-5.0) g/dL Globulin 3.2 (1.7-4.1) g/dL Albumin/Globulin Ratio 1.6 (1.0-2.8) Lipase 69 (23-300) U/L Point of care testing: Urine Dip Bedside Urine Glucose Negative Bedside Urine Bilirubin - Negative Bedside Urine Ketone - Negative Urine Specific [place] 1.015 Bedside Urine Occult Blood - Negative Bedside Urine pH 6.0 Bedside Urine Protein - Negative Bedside Urine Urobilinogen - Negative Bedside Urine Nitrite - Negative Bedside Urine Leukocytes - Negative Esterase Imaging Data CT scan - abdomen/pelvis: Radiologist's Impression: [place] [address] CT Scan Report Signed Patient: El Wood MR#: [id number] : 1985 Acct:[id number] Age/Sex: 37 / M Date of Service: 10/04/22 Loc: ED Accession Number: [id number] ?? Procedure: CT abdomen pelvis w con Ordering Provider: Amandeep Gaston D.O. PROCEDURE:? CT ABDOMEN PELVIS W CON ? INDICATIONS:? severe LUQ/left flank pain ? TECHNIQUE:? After the administration of intravenous contrast, axial sections acquired from the lung bases to the pubic symphysis.? Coronal and sagittal reformats were performed.? For radiation dose reduction, the following was used:? automated exposure control, adjustment of mA and/or kV according to patient size.? ? COMPARISON:? None. ? FINDINGS:? Image quality:? Excellent.? ? Lung bases:? Unremarkable. Heart:? No significant findings. ? ABDOMEN: Liver:? Unremarkable.? ? Gallbladder:? Unremarkable.? ? Biliary ducts:? Unremarkable.? ? Pancreas:? Unremarkable.? ? Spleen:? Unremarkable.? ? Adrenal Glands:? Unremarkable.? ? Kidneys and Ureters:? Unremarkable.? ? ? Stomach and Bowel:? Stomach, small bowel loops, and colon are unremarkable.? Peritoneum:? No abnormal intraperitoneal fluid.? No free air.? ? Ventral Wall: ? No hernias.? Abdominal Nodes:? No retroperitoneal or mesenteric adenopathy by size criteria.? Vessels:? Aorta and inferior vena cava are normal in size.? ? PELVIS: Pelvic Organs:? Unremarkable.? ? Bladder:? Unremarkable.? ? Pelvic Nodes: No enlarged lymph nodes.? Miscellaneous: No hernias are seen. ? ? Normal appendix right lower quadrant. ? Bones:? Unremarkable.? IMPRESSION:? Source of left lower quadrant pain not seen.? Normal appendix found.? No evidence of diverticulitis or colitis.? No urinary tract inflammation is seen. ? ? Dictated by: David Robles M.D. on 10/04/2022 at 20:29 ? ? Approved by: David Robles M.D. on 10/04/2022 at 20:30 ? MDM Narrative Medical decision making narrative: 37-year-old male nonsmoker with history of BPH presents with his significant other and a chief complaint of severe left upper quadrant and left flank pain Multiple etiologies for patient's symptoms considered including: [Kidney stone, kidney infection, bowel obstruction, musculoskeletal, pneumonia, early shingles Labs are very reassuring and absent of any critical abnormalities or significant departure from his normal. CT of abdomen and pelvis absence of any significant findings such as kidney stone, hydronephrosis, bowel obstruction, gastric outlet obstruction or other Patient persistently talks about a burning, hot feeling sensation that wraps around his side. Though there is no classic rash involving vesicles on an erythematous base there certainly is some consideration about possible early shingles. He has significant if not complete resolution symptoms after gabapentin Decadron and Flexeril] Patient's symptoms improved over duration of stay with above-stated therapies. Findings and discharge diagnosis discussed with patient/family followed by verbalization of understanding Return precautions discussed with patient/family whom verbalize understanding. Discharge Plan Departure Patient Disposition: Home Clinical Impression: Acute flank pain Instructions: DI for Flank Pain Activity Restrictions/Additional Instructions: *You have been diagnosed with [left flank pain. As we discussed your history and physical exam are very reassuring as are labs and imaging. There is no evidence of bowel obstruction, kidney stone or other specific diagnosis that requires immediate intervention. As we discussed there are elements of your story and exam that makes me question whether not this might be an early presentation of shingles] *What to do: *Please continue to take your regular medications as directed. [ ] New medication prescriptions sent to your pharmacy: [ ] [ ] New medication written as a paper prescription [ ] No new medications given *Please follow up with your primary care provider in 2-3 days, call for an appointment. Let them know you were seen in the Emergency Department and that we ask that you be seen in follow up. We will electronically transmit a record of today's note if your PCP is in our system *If you do not have a primary care provider please contact the [facility] Resource line at [phone]. They will ask some questions about your medical history and help get you set up with a doctor in the community. *Return to Emergency Department if you should have any new, worsening or concerning symptoms, such as [fever greater than 101 F, shaking chills, worsening pain, persistent vomiting or other bothersome symptoms] Prescriptions: New cyclobenzaprine 10 mg tablet 10 mg PO TID PRN (Reason: muscle spasm) Qty: 14 0RF ketorolac 10 mg tablet 10 mg PO Q6H PRN (Reason: pain) Qty: 14 0RF gabapentin 300 mg capsule 300 mg PO BEDTIME Qty: 14 0RF valacyclovir 1 gram tablet 1,000 mg PO TID 10 Days Qty: 30 0RF No Action paroxetine HCl [Paxil] 20 mg Tablet 20 mg PO BEDTIME bupropion HCl 300 mg tablet extended release 24 hr 300 mg PO DAILY Label Comments: TAKE 1 TABLET BY MOUTH EVERY 24 HOURS clonidine HCl 0.1 mg tablet 0.1 mg PO .as needed tamsulosin 0.4 mg capsule 0.4 mg PO BEDTIME Qty: 90 3RF Referrals: Anna Camacho ARNP [Primary Care Provider] - Visit Report Forms: Patient Portal/API
--- NOTE | 2022-10-04 19:52 | DI.CT.S_ITS ---
PROCEDURE: CT ABDOMEN PELVIS W CON INDICATIONS: severe LUQ/left flank pain TECHNIQUE: After the administration of intravenous contrast, axial sections acquired from the lung bases to the pubic symphysis. Coronal and sagittal reformats were performed. For radiation dose reduction, the following was used: automated exposure control, adjustment of mA and/or kV according to patient size. COMPARISON: None. FINDINGS: Image quality: Excellent. Lung bases: Unremarkable. Heart: No significant findings. ABDOMEN: Liver: Unremarkable. Gallbladder: Unremarkable. Biliary ducts: Unremarkable. Pancreas: Unremarkable. Spleen: Unremarkable. Adrenal Glands: Unremarkable. Kidneys and Ureters: Unremarkable. Stomach and Bowel: Stomach, small bowel loops, and colon are unremarkable. Peritoneum: No abnormal intraperitoneal fluid. No free air. Ventral Wall: No hernias. Abdominal Nodes: No retroperitoneal or mesenteric adenopathy by size criteria. Vessels: Aorta and inferior vena cava are normal in size. PELVIS: Pelvic Organs: Unremarkable. Bladder: Unremarkable. Pelvic Nodes: No enlarged lymph nodes. Miscellaneous: No hernias are seen. Normal appendix right lower quadrant. Bones: Unremarkable. IMPRESSION: Source of left lower quadrant pain not seen. Normal appendix found. No evidence of diverticulitis or colitis. No urinary tract inflammation is seen. Dictated by: David Robles M.D. on 10/04/2022 at 20:29 Approved by: David Robles M.D. on 10/04/2022 at 20:30
[2022-10-04] MEDS: SODIUM CHLORIDE 0.9% 1,000 ML 1000 ML IV (20:00)
[2022-10-04] MEDS: PANTOPRAZOLE 40 MG VIAL IV (20:00)
--- NOTE | 2022-10-04 20:00 | PC.NURSE ---
in to medicate pt - states that the contrast made him feel flushed with a burning sensation - states that it made his abdomen hurt worse - alert and oriented - PWD with respirations equal and unlabored bilaterally
--- NOTE | 2022-10-04 20:30 | PC.NURSE ---
Resting quietly in NAD - no needs voiced - PWD with respirations equal and unlabored bilaterally - family at bedside
--- NOTE | 2022-10-04 21:15 | PC.NURSE ---
MD at bedside - family present
--- NOTE | 2022-10-04 22:00 | PC.NURSE ---
No changes in pt status
[2022-10-04] MEDS: DEXAMETHASONE 10 MG/ML VIAL IV (22:21)
[2022-10-04] MEDS: CYCLOBENZAPRINE 10 MG PREPACK 1 BOTTLE MISC (22:21)
[2022-10-04] MEDS: GABAPENTIN 300 MG CAPSULE PO (22:22)
[2022-10-04] MEDS: KETOROLAC 30 MG/ML VIAL 15 MG IV (22:22)
--- NOTE | 2022-10-04 22:45 | PC.NURSE ---
States that he is feeling much better at this time - family at bedside
--- NOTE | 2022-10-04 23:00 | PC.NURSE ---
MD at bedside - family at bedside
[2022-10-04 23:24] VITALS: BP 126/81; PULSE 50; RESP 16; O2SAT 96
== END 2022-10-04 23:30 | disposition home or self-care (01) ==
PROVIDERS: Emergency Provider Emergency Medicine; PCP Nurse Practitioner Family
DX: R10.12 Left upper quadrant pain (principal); M54.6 Pain in thoracic spine; R11.2 Nausea with vomiting, unspecified
CPT/HCPCS: 36415; 74177; 80053; 81003; 83690; 85025; 93005; 96361; 96374; 96375; 99284; C9113; J1100; J1885; J2405; Q9967

== ENCOUNTER 2023-06-17 09:31 | Emergency (ER) | payer OTHER, SELFPAY ==
[2023-06-17] VITALS (40 sets, daily range): BP systolic 105–134; BP diastolic 56–86; PULSE 42–60; RESP 12–22; TEMP 36.5; O2SAT 94–100; BMI 27.1
--- NOTE | 2023-06-17 09:48 | ED.GENADULT ---
HPI - General Adult General Chief complaint: Dizziness Stated complaint: Dizzy Time Seen by Provider: 06/17/23 09:40 History of Present Illness HPI narrative: 37-year-old male nonsmoker without chronic medical history presents by EMS for evaluation of dizziness and lightheadedness today. He states the sensation seems to come and go without obvious pattern. It is not obviously worse when he stands or improves when he lays down. He denies new medications or diet. Denies any history of the same. He denies any nausea, vomiting or diarrhea. He is had no chest pain, palpitations or shortness of breath. He states his resting heart rate is typically in the 50s. On arrival EMS found his heart rate to be in the 90s and dropped to the 50s or 60s for much of his transport. Related Data Home Medications Medication Instructions Recorded Confirmed bupropion HCl 300 mg 24 hr tablet, 300 mg PO DAILY 03/20/22 12/01/22 extended release paroxetine HCl 20 mg tablet (Paxil) 20 mg PO BEDTIME 03/20/22 12/01/22 clonidine HCl 0.1 mg tablet 0.1 mg PO .as needed 09/30/22 12/01/22 dicyclomine 20 mg tablet 20 mg PO BID 12/01/22 12/01/22 pantoprazole 40 mg tablet,delayed 40 mg PO DAILY 12/01/22 12/01/22 release Previous Rx's Medication Instructions Recorded tamsulosin 0.4 mg capsule 0.4 mg PO BEDTIME #90 caps 08/05/22 gabapentin 300 mg capsule 300 mg PO BEDTIME #14 caps 10/04/22 Allergies Allergy/AdvReac Type Severity Reaction Status Date / Time No Known Drug Allergies Allergy Verified 12/01/22 09:30 Review of Systems Review of Systems Narrative: GENERAL: See HPI HEENT: Denies sinus pain, ear pain, sore throat, difficulty swallowing, dizziness. RESPIRATORY: Denies dyspnea, cough, wheezing, hemoptysis, sputum. CARDIOVASCULAR: See HPI GASTROINTESTINAL: Denies nausea, vomiting, abdominal pain, diarrhea, constipation, melena. : Denies dysuria, frequency, incontinence, hematuria, urinary retention. MUSCULOSKELETAL: denies weakness, joint pain, or bony pain SKIN: Denies rash, skin lesions, or other NEUROLOGIC: See HPI PSYCHIATRIC: No concerning psychosocial issues. 12 point review of systems is negative except for those stated above Patient History Medical History BPH loc w urin obs/LUTS Depression Epididymal pain Testicular pain Surgical History S/P orchiopexy Family History Father Diabetes mellitus Hyperlipidemia Hypertension Mother Cancer Social History marital status: number of children: 3 Smoking Status: Never smoker Type(s) of exercise: aerobic frequency: daily Smoking Status: Never smoker alcohol intake frequency: 0-2 drinks per day Alcohol type: beer Substance Use Type: does not use Exam Narrative Exam Narrative: GENERAL: [37] year old patient appears stated age. Well-developed patient, in mild distress. HEAD: Atraumatic. Normocephalic. EYES: Pupils equal round and reactive. Extraocular motions intact. No scleral icterus. No injection or drainage. ENT: Nose without bleeding, purulent drainage. Throat without erythema, tonsillar hypertrophy or exudate. Airway patent. NECK: Trachea midline. Non tender CARDIOVASCULAR: Bradycardic but regular rhythm without murmurs, gallops, or rubs. RESPIRATORY: Clear to auscultation. Breath sounds equal bilaterally. No wheezes, rales, or rhonchi. GASTROINTESTINAL: Abdomen soft, non-tender, nondistended. EXTREMITIES: No edema or joint tenderness. BACK: Nontender without deformity or crepitance. No flank tenderness. NEURO: AOx3. SKIN: No rash or erythema of visible areas Initial Vital Signs Initial Vital Signs: Vital Signs Temperature 97.7 F 06/17/23 09:45 Pulse Rate 57 L 06/17/23 09:45 Respiratory Rate 18 06/17/23 09:45 Blood Pressure 121/78 06/17/23 09:45 Pulse Oximetry 100 06/17/23 09:45 Oxygen Delivery Method Room Air 06/17/23 09:45 Course Orders Ordered: Discontinued Medications Acetaminophen (Acetaminophen 325 Mg Tablet) 975 mg PO NOW ONE Stop: 06/17/23 11:05 Last Admin: 06/17/23 11:11 Dose: 975 mg Documented By: LUDWIN Sodium Chloride (Normal Saline 0.9%) 1,000 mls @ 1,000 mls/hr IV BOLUS ONE Stop: 06/17/23 10:47 Last Infusion: 06/17/23 11:10 Dose: 0 mls/hr Documented By: Admin: 06/17/23 10:09 Dose: 1,000 mls/hr Documented By: LUDWIN Sodium Chloride (Normal Saline 0.9%) 1,000 mls @ 1,000 mls/hr IV BOLUS ONE Stop: 06/17/23 13:12 Last Infusion: 06/17/23 13:30 Dose: 0 mls/hr Documented By: Admin: 06/17/23 12:30 Dose: 1,000 mls/hr Documented By: LUDWIN Medical Decision Making Lab Data 06/17/23 09:47 06/17/23 09:47 Labs: Lab Results 06/17/23 06/17/23 Range/Units 09:47 09:47 WBC 5.5 (4.5-11.0) X10^3/uL RBC 5.15 (4.5-5.9) X10^6/uL Hgb 16.0 (13.5-17.5) g/dL Hct 45.8 (41-53) % MCV 89.0 (80-100) fL MCH 31.1 (26-34) PG MCHC 35.0 (30-36) % RDW 13.2 (11.6-14.8) % Plt Count 258 (150-400) X10^3/uL Neut % (Auto) 52.8 (50-75) % Lymph % (Auto) 35.0 (25-40) % Wilson % (Auto) 10.3 (3-14) % Eos % (Auto) 1.0 L (2-4) % Baso % (Auto) 0.9 (0-2) % Neut # (Auto) 2900 (3332-5591) /uL Lymph # (Auto) 1900 (7817-9472) /uL Wilson # (Auto) 600 (0-900) /uL Eos # (Auto) 100 (0-450) /uL Baso # (Auto) 0 (0-100) /uL Sodium 138 (137-145) mmol/L Potassium 4.3 (3.4-5.1) mmol/L Chloride 105 (98-107) mmol/L Carbon Dioxide 26 (22-32) mmol/L BUN 23 H (9-20) mg/dL Creatinine 1.35 H (0.66-1.25) mg/dL Estimated GFR > 60 (>60) mL/min BUN/Creatinine Ratio 17.0 (6-22) Glucose 97 (70-100) mg/dL Calcium 9.2 (8.4-10.2) mg/dL Magnesium 2.1 (1.6-2.3) mg/dL Total Bilirubin 0.6 (0.2-1.3) mg/dL AST 45 (17-59) IU/L ALT 39 (<50) IU/L Alkaline Phosphatase 47 (38-126) U/L Total Creatine Kinase 1202 H (55-170) U/L Troponin I < 0.012 (0.01-0.034) ng/mL Total Protein 7.2 (6.3-8.2) g/dL Albumin 4.4 (3.5-5.0) g/dL Globulin 2.8 (1.7-4.1) g/dL Albumin/Globulin Ratio 1.6 (1.0-2.8) Urine Dip Bedside Urine Glucose Negative Bedside Urine Bilirubin - Negative Bedside Urine Ketone - Negative Urine Specific [place] 1.010 Bedside Urine Occult Blood - Negative Bedside Urine pH 6.0 Bedside Urine Protein - Negative Bedside Urine Urobilinogen - Negative Bedside Urine Nitrite - Negative Bedside Urine Leukocytes - Negative Esterase Point of care testing: Urine Dip Bedside Urine Glucose Negative Bedside Urine Bilirubin - Negative Bedside Urine Ketone - Negative Urine Specific [place] 1.010 Bedside Urine Occult Blood - Negative Bedside Urine pH 6.0 Bedside Urine Protein - Negative Bedside Urine Urobilinogen - Negative Bedside Urine Nitrite - Negative Bedside Urine Leukocytes - Negative Esterase [facility] Narrative Medical decision making narrative: CC: 37 male with episodes of lightheadedness Complicating co-morbidities: No chronic medical history Data collected from: Patient Medical records reviewed: Prior notes reviewed in our EMR Differential considered, but not limited to: Bradycardia versus dehydration versus electrolyte abnormality versus anemia versus other Exam documented above, pertinent findings include: Bradycardic but regular rhythm, lungs clear, abdomen soft, GCS 15, cranial nerves 2-12 grossly intact Lab Test results independently reviewed as above. Pertinent findings: No leukocytosis or left shift, no signs of anemia, primary electrolytes within normal limits, creatinine slightly elevated at 1.35, this appears consistent with prior levels. Slight elevation in total CK, troponin negative Independently reviewed EKG as above Imaging studies independently reviewed: Head CT demonstrates no intracranial process Treatments: IV fluids (2 L) acetaminophen Re-evaluations: Headache greatly improved after above-stated therapies, he remains alert and oriented, speaking clearly, ambulatory, no orthostasis, vital signs stable. Patient history and physical exam are very reassuring, No evidence of any significant underlying condition that requires immediate intervention. Multiple diagnoses considered as noted above, no significant findings, patient has improvement, patient appropriate for discharge, encouraged to follow closely, return precautions include but not limited to recurrence of headache, fever, chest pain, shortness of breath, syncope versus other bothersome symptoms. Patient understands and agrees with the diagnosis and plan Disposition: see below, along with detailed discharge instructions that have been reviewed with patient as well as indications for ED re-evaluation and additional outpatient follow up Discharge Plan Departure Patient Disposition: Home Clinical Impression: Headache, Paresthesia Instructions: DI for Dizziness-Nonvertigo Activity Restrictions/Additional Instructions: *You have been diagnosed with [ Headache. As we discussed your history and physical exam are very reassuring, your labs are unremarkable, CT scan shows no evidence of bleeding or stroke.] *What to do: *Take medications as directed *Follow up with your primary care provider in 2-3 days, call for an appointment. Let them know you were seen in the Emergency Department and that we ask that you be seen in follow up *Return to ER if you should have any new, worsening or concerning symptoms, such as [ fever > 101F, neck pain or stiffness, vomiting, confusion, seizure, focal weakness, vision change, speech deficit or other concerning symptoms ] Prescriptions: No Action paroxetine HCl [Paxil] 20 mg Tablet 20 mg PO BEDTIME bupropion HCl 300 mg tablet extended release 24 hr 300 mg PO DAILY Patient Comments: TAKE 1 TABLET BY MOUTH EVERY 24 HOURS gabapentin 300 mg capsule 300 mg PO BEDTIME Qty: 14 0RF clonidine HCl 0.1 mg tablet 0.1 mg PO .as needed pantoprazole 40 mg tablet,delayed release (DR/EC) 40 mg PO DAILY dicyclomine 20 mg tablet 20 mg PO BID tamsulosin 0.4 mg capsule 0.4 mg PO BEDTIME Qty: 90 3RF Referrals: Anna Camacho ARNP [Primary Care Provider] - Stand Alone Forms: Patient Portal/API
--- NOTE | 2023-06-17 09:49 | DI.RAD.S_ITS ---
P the ROCEDURE: XR CHEST 1V INDICATIONS: dizzy, lightheaded TECHNIQUE: One view of the chest was acquired. COMPARISON: [facility], [place], XR CHEST 1V, 04/16/2022, 20:08. FINDINGS: Surgical changes and devices: None. Lungs and pleura: Lungs are clear. No pleural effusions or pneumothorax. Mediastinum: Mediastinal contours appear normal. Heart size is normal. Bones and chest wall: No suspicious bony lesions. Overlying soft tissues appear unremarkable. IMPRESSION: No evidence acute pulmonary process. Dictated by: Lestre Blakely M.D. on 06/17/2023 at 10:36 Approved by: Lester Blakely M.D. on 06/17/2023 at 10:37
[2023-06-17 09:59] LABS: Add Manual Diff / Slide Review NO; Basophils Absolute Auto 0 /uL (0-100); Basophils Percent Auto 0.9 % (0-2); Eosinophils Absolute Auto 100 /uL (0-450); Hematocrit 45.8 % (41-53); Lymphocytes Absolute Auto 1900 /uL (1100-4500); Mean Corpuscular Hemoglobin 31.1 PG (26-34); Monocytes Absolute Auto 600 /uL (0-900); Monocytes Percent Auto 10.3 % (3-14); Neutrophils Absolute Auto 2900 /uL (1500-7000); Neutrophils Percent Auto 52.8 % (50-75); Platelet Count 258 X10^3/uL (150-400); Red Blood Cell Count 5.15 X10^6/uL (4.5-5.9); Red Cell Distribution Width 13.2 % (11.6-14.8); White Blood Cell Count 5.5 X10^3/uL (4.5-11.0)
[2023-06-17] MEDS: SODIUM CHLORIDE 0.9% 1,000 ML 1000 ML IV ×2 (10:09→12:30)
[2023-06-17 10:13] LABS: Alanine Aminotransferase 39 IU/L (<50); Albumin 4.4 g/dL (3.5-5.0); Albumin Globulin Ratio 1.6 (1.0-2.8); Alkaline Phosphatase 47 U/L (38-126); Aspartate Aminotransferase 45 IU/L (17-59); Bilirubin Total 0.6 mg/dL (0.2-1.3); Blood Urea Nitrogen 23 mg/dL (9-20); Calcium 9.2 mg/dL (8.4-10.2); Carbon Dioxide 26 mmol/L (22-32); Chloride 105 mmol/L (98-107); Creatine Kinase 1202 U/L (55-170); Estimated Glomerular Filt Rate > 60 mL/min (>60); Globulin 2.8 g/dL (1.7-4.1); Glucose 97 mg/dL (70-100); HEMOLYSIS 33 (0-50); Magnesium 2.1 mg/dL (1.6-2.3); Potassium 4.3 mmol/L (3.4-5.1); Sodium 138 mmol/L (137-145); Total Protein 7.2 g/dL (6.3-8.2)
[2023-06-17 10:25] LABS: Troponin I < 0.012 ng/mL (0.01-0.034)
--- NOTE | 2023-06-17 11:06 | PC.NURSE ---
Patient states feeling worse. Patient states headache 5/10, physician aware, order placed.
[2023-06-17] MEDS: ACETAMINOPHEN 325 MG TABLET 975 MG PO (11:11)
--- NOTE | 2023-06-17 12:13 | DI.CT.S_ITS ---
PROCEDURE: CT HEAD/BRAIN WO CON INDICATIONS: DIXON, dizziness TECHNIQUE: Noncontrast 4.5 mm thick angled axial sections acquired from the foramen magnum to the vertex, with coronal and sagittal reformats. For radiation dose reduction, the following was used: automated exposure control, adjustment of mA and/or kV according to patient size. COMPARISON: [facility], CT, CT HEAD/BRAIN WO CON, 06/19/2022, 9:17. FINDINGS: Image quality: Excellent. CSF spaces: Basal cisterns are patent. No extra-axial fluid collections. Ventricles are normal in size and shape. Brain: No midline shift. No intracranial masses or hemorrhage. Lopez-white matter interface is normal. Skull and face: Calvarium and visualized facial bones are intact, without suspicious lesions. Sinuses: Visualized sinuses and mastoids are clear. IMPRESSION: No acute intracranial process Dictated by: Lester Blakely M.D. on 06/17/2023 at 13:25 Approved by: Lester Blakely M.D. on 06/17/2023 at 13:26
== END 2023-06-17 14:45 | disposition home or self-care (01) ==
PROVIDERS: Emergency Provider Emergency Medicine; PCP Nurse Practitioner Family
DX: R51.9 Headache, unspecified (principal); R20.2 Paresthesia of skin
CPT/HCPCS: 36415; 70450; 71045; 80053; 81003; 82550; 83735; 84484; 85025; 93005; 96360; 96361; 99284

== ENCOUNTER → 2023-10-21 08:09 | Outpatient (CLI) | payer OTHER, SELFPAY ==
--- NOTE | 2023-10-21 | DI.RAD.S_ITS ---
PROCEDURE: [place] SHOULDER INJECTION MR/CT LT INDICATIONS: LEFT SHOULDER INSTABILITY COMPARISON: None. TECHNIQUE: The indications, alternatives, benefits, risks, and complications of the procedure were explained to the patient. Written informed consent was obtained and placed in the chart. The shoulder was examined fluoroscopically and a site for needle placement chosen for entry into the glenohumeral joint from an anterior approach. The skin was prepped and draped in a sterile fashion, and 1% lidocaine infiltrated from skin down to joint capsule. A spinal needle was inserted into the glenohumeral joint, and a small amount of iodinated contrast media injected to confirm intra-articular placement of the needle tip. This was followed by approximately 12 mL dilute solution of a gadolinium containing MR contrast agent. The needle was removed and a dressing was applied. The patient was given postprocedural instructions and sent to the MR suite for MR imaging. FINDINGS: A single fluoroscopic spot image demonstrates intra-articular location of injected iodinated contrast. IMPRESSION: Successful fluoroscopically guided administration of dilute Gadolinium solution into the shoulder joint for MR arthrogram. Dictated by: Vadim Srivastava M.D. on 10/21/2023 at 10:10 Approved by: Vadim Srivastava M.D. on 10/21/2023 at 10:12
--- NOTE | 2023-10-21 | DI.MRI.S_ITS ---
PROCEDURE: MR SHOULDER LT W CON INDICATIONS: LEFT SHOULDER INSTABILITY TECHNIQUE: After the administration of 12 mL of dilute intra-articular Gadolinium contrast, oblique coronal T1 and T2 spin echo with fat saturation, oblique sagittal T1 spin echo with and without fat saturation, oblique sagittal T2 fast spin echo with fat saturation, axial T1 spin echo with fat saturation through the shoulder. COMPARISON: [facility], , [place] SHOULDER INJECTION MR/CT LT, 10/21/2023, 9:40. FINDINGS: Image quality: Diagnostic Rotator cuff: Bulk: No significant atrophy Teres minor: Intact Supraspinatus: Partial-thickness interstitial tears at the muscle tendon junction. Moderate partial-thickness articular sided tear also seen. Infraspinatus: Small interstitial tear. Mild tendinosis. Subscapularis: [id number] tendinosis. Bones and bursae: GH joint: No significant degenerative changes. Joint is filled with contrast AC joint: [id number] degenerative changes Humeral head: No acute fracture Scapula and acromion: Intact Bursa: No contrast extension. Capsule: Labrum: Superior anterior labral tear is present Long head biceps tendon: Normally situated IGHL: Intact Rotator interval: Filled with contrast Soft tissues: No axillary adenopathy. Lungs are not well seen. IMPRESSION: Superior anterior labral tear. Partial-thickness rotator cuff tears, including a moderate partial-thickness articular tear near the insertion of the supraspinatus. No full-thickness defect. No bursal contrast infiltration. [id number] acromioclavicular degenerative changes. Dictated by: Jose Mulligan M.D. on 10/21/2023 at 9:48 Approved by: Jose Mulligan M.D. on 10/21/2023 at 9:54
[2023-10-21] MEDS: LIDOCAINE 1% 20 ML INJ (09:21)
[2023-10-21] MEDS: SODIUM CHLORIDE 0.9 % 20 ML VIAL IV (09:22)
== END ==
PROVIDERS: PCP Student in an Organized Health Care Education/Training Program; Referring Provider Student in an Organized Health Care Education/Training Program; Visit Provider Student in an Organized Health Care Education/Training Program
DX: M75.112 Incomplete rotator cuff tear or rupture of left shoulder, not specified as traumatic (principal); M25.312 Other instability, left shoulder; S43.432A Superior glenoid labrum lesion of left shoulder, initial encounter
CPT/HCPCS: 23350; 73222